=== PATIENT | male | born 1940 | race Caucasian/White ===

== ENCOUNTER 2021-05-20 17:50 | Inpatient (IN) | payer BC, OTHER ==
[2021-05-20 20:56] LABS: EOS % 1.4 % (0-4.5); HEMATOCRIT 41.5 % (35.4-49); HEMOGLOBIN 14.3 GM/dL (11.7-16.9); LYMPH % 19.6 % (8-40); MCH 28.5 pg (25.7-33.7); MCHC 34.4 g/dl (32.0-35.9); MEAN CELL VOLUME 82.7 fl (80-96); MEAN PLT VOLUME 7.6 fl (7.5-11.1); MONO % 6.4 % (3.8-10.2); NEUT % 71.6 % (42.8-82.8); PLATELET COUNT 80 10^3/uL (134-434); RBC 5.02 M/mm3 (4.00-5.60); RDW 14.7 % (11.9-15.9); WHITE BLOOD COUNT 4.9 K/mm3 (4.0-10.0)
[2021-05-20 21:03] LABS: EPI CELLS 2 /uL (0-25.1); HYALINE CASTS 1 /uL (0-3.1); PH,URINE 6.5 (5.0-8.0); URINE APPEARANCE CLEAR; URINE BACTERIA 10 /uL (0-1359); URINE BILIRUBIN NEGATIVE (NEGATIVE); URINE COLOR YELLOW; URINE GLUCOSE (UA) NEGATIVE (NEGATIVE); URINE KETONE NEGATIVE (NEGATIVE); URINE LEUK ESTERASE TRACE (NEGATIVE); URINE NITRITE NEGATIVE (NEGATIVE); URINE PROTEIN NEGATIVE (NEGATIVE); URINE RBC 37 /uL (0-23.9); URINE UROBILINOGEN 0.2 mg/dL (0.2-1.0); URINE WBC 7 /uL (0-25.8)
[2021-05-20 21:15] LABS: CHLORIDE 108 mmol/L (98-107); SODIUM 142 mmol/L (136-145)
[2021-05-20 21:17] LABS: CALCIUM 8.7 mg/dL (8.5-10.1)
[2021-05-20 21:18] LABS: ALBUMIN 3.4 g/dl (3.4-5.0); ANION GAP 7 MMOL/L (8-16); BLOOD UREA NITROGEN 16.9 mg/dL (7-18); CO2 28 mmol/L (21-32); GLUCOSE,RANDOM 87 mg/dL (74-106)
[2021-05-20 21:21] LABS: CREATININE 0.8 mg/dL (0.55-1.3); SGOT/AST 23 U/L (15-37); SGPT/ALT 20 U/L (13-61)
[2021-05-20 21:23] LABS: BILIRUBIN,TOTAL 0.4 mg/dL (0.2-1); TOT PROT 6.3 g/dl (6.4-8.2)
[2021-05-20 21:24] LABS: ALK PHOS 68 U/L (45-117)
[2021-05-20] MEDS ORDERED: HALOPERIDOL LACTATE 5 MG/ML IM ONE ×2 (23:05→23:06)
[2021-05-21] MEDS ORDERED: HALOPERIDOL LACTATE 5 MG/ML ONE (00:19)
[2021-05-21] MEDS ORDERED: clonazePAM 0.5 MG TABLET PO PRN (08:54)
[2021-05-21] MEDS: PANTOPRAZOLE 40 MG TABLET PO SCH (11:56)
[2021-05-21] MEDS: LOSARTAN POTASSIUM 50 MG TABLET PO SCH (11:56)
[2021-05-21] MEDS: ENOXAPARIN NA (PORCINE) 40 MG/0.4 ML DISP.SYRIN SQ SCH (11:58)
[2021-05-21] MEDS: SERTRALINE HCL 50 MG TABLET (FP) PO SCH (13:33)
[2021-05-21] MEDS: TIMOLOL 0.5% OPHTHALMIC SOL 5 ML BOTTLE OU SCH (14:23)
[2021-05-21] MEDS: MEMANTINE HCL 5 MG TABLET (UD) PO SCH ×2 (14:27→21:43)
[2021-05-21 15:34] VITALS: BMI 23.4
[2021-05-21 16:35] LABS: BASO % 0.5 % (0-2.0); EOS % 0.4 % (0-4.5); HEMATOCRIT 42.2 % (35.4-49); HEMOGLOBIN 14.7 GM/dL (11.7-16.9); LYMPH % 11.5 % (8-40); MCH 28.5 pg (25.7-33.7); MCHC 34.9 g/dl (32.0-35.9); MEAN CELL VOLUME 81.8 fl (80-96); MONO % 7.1 % (3.8-10.2); NEUT % 80.5 % (42.8-82.8); PLATELET COUNT 104 10^3/uL (134-434); RBC 5.16 M/mm3 (4.00-5.60); RDW 14.7 % (11.9-15.9); WHITE BLOOD COUNT 6.7 K/mm3 (4.0-10.0)
[2021-05-21 16:55] LABS: CALCIUM 8.4 mg/dL (8.5-10.1)
[2021-05-21 16:56] LABS: ALBUMIN 3.3 g/dl (3.4-5.0); BLOOD UREA NITROGEN 12.5 mg/dL (7-18)
[2021-05-21 16:57] LABS: MAGNESIUM 2.1 mg/dL (1.8-2.4)
[2021-05-21 16:59] LABS: CREATININE 0.9 mg/dL (0.55-1.3); PHOSPHOROUS 3.5 mg/dL (2.5-4.9)
[2021-05-21 17:00] LABS: BILIRUBIN,TOTAL 0.6 mg/dL (0.2-1); TOT PROT 6.1 g/dl (6.4-8.2)
[2021-05-21] MEDS ORDERED: clonazePAM 0.25 MG ODT TABLETS SL SCH (22:00)
[2021-05-22] MEDS ORDERED: PT OWN MED DRAWER 7, Y5N ONE ×2 (08:29→15:15)
[2021-05-22] MEDS ORDERED: clonazePAM 0.25 MG ODT TABLETS SL PRN (09:41)
[2021-05-22 09:48] LABS: BASO % 0.9 % (0-2.0); EOS % 1.4 % (0-4.5); HEMATOCRIT 47.4 % (35.4-49); HEMOGLOBIN 16.3 GM/dL (11.7-16.9); LYMPH % 16.5 % (8-40); MCH 28.6 pg (25.7-33.7); MCHC 34.4 g/dl (32.0-35.9); MEAN PLT VOLUME 8.1 fl (7.5-11.1); MONO % 7.3 % (3.8-10.2); NEUT % 73.9 % (42.8-82.8); PLATELET COUNT 118 10^3/uL (134-434); RBC 5.71 M/mm3 (4.00-5.60); RDW 14.8 % (11.9-15.9); WHITE BLOOD COUNT 6.6 K/mm3 (4.0-10.0)
[2021-05-22 10:05] LABS: CALCIUM 9.3 mg/dL (8.5-10.1)
[2021-05-22 10:06] LABS: BLOOD UREA NITROGEN 14.7 mg/dL (7-18)
[2021-05-22 10:09] LABS: CREATININE 0.8 mg/dL (0.55-1.3)
[2021-05-22] MEDS: SERTRALINE HCL 50 MG TABLET (FP) PO SCH (11:01)
[2021-05-22] MEDS: LOSARTAN POTASSIUM 50 MG TABLET PO SCH (11:01)
[2021-05-22] MEDS: PANTOPRAZOLE 40 MG TABLET PO SCH (11:01)
[2021-05-22] MEDS: MEMANTINE HCL 5 MG TABLET (UD) PO SCH ×2 (11:01→22:51)
[2021-05-22] MEDS: CYANOCOBALAMIN 1,000 MCG TABLET (FP) PO SCH (11:07)
[2021-05-22] MEDS: TIMOLOL 0.5% OPHTHALMIC SOL 5 ML BOTTLE OU SCH (11:14)
[2021-05-22] MEDS: ENOXAPARIN NA (PORCINE) 40 MG/0.4 ML DISP.SYRIN SQ SCH (11:14)
[2021-05-22] MEDS: ATORVASTATIN CA 20 MG TABLET (FP) PO SCH (23:48)
[2021-05-23] MEDS ORDERED: clonazePAM 0.5 MG TABLET PO PRN (09:36)
[2021-05-23] MEDS: MEMANTINE HCL 5 MG TABLET (UD) PO SCH ×2 (09:51→21:44)
[2021-05-23] MEDS: LOSARTAN POTASSIUM 50 MG TABLET PO SCH (09:51)
[2021-05-23] MEDS: SERTRALINE HCL 50 MG TABLET (FP) PO SCH (09:51)
[2021-05-23] MEDS: QUEtiapine FUMARATE 25 MG TABLET PO PRN ×2 (09:51→21:44)
[2021-05-23] MEDS: CYANOCOBALAMIN 1,000 MCG TABLET (FP) PO SCH (09:51)
[2021-05-23] MEDS: ENOXAPARIN NA (PORCINE) 40 MG/0.4 ML DISP.SYRIN SQ SCH (09:52)
[2021-05-23] MEDS: PANTOPRAZOLE 40 MG TABLET PO SCH (09:52)
[2021-05-23] MEDS: TIMOLOL 0.5% OPHTHALMIC SOL 5 ML BOTTLE OU SCH (09:53)
[2021-05-23] MEDS ORDERED: PT OWN MED DRAWER 7, Y5N ONE (16:29)
[2021-05-23] MEDS: ATORVASTATIN CA 20 MG TABLET (FP) PO SCH (21:44)
[2021-05-24] MEDS: QUEtiapine FUMARATE 25 MG TABLET PO PRN (08:20)
[2021-05-24] MEDS ORDERED: LORazepam 2 MG/ML SDV VIAL IM ONE (09:30)
[2021-05-24] MEDS: ENOXAPARIN NA (PORCINE) 40 MG/0.4 ML DISP.SYRIN SQ SCH (09:36)
[2021-05-24] MEDS: PANTOPRAZOLE 40 MG TABLET PO SCH (09:36)
[2021-05-24] MEDS: LOSARTAN POTASSIUM 50 MG TABLET PO SCH (09:36)
[2021-05-24] MEDS: MEMANTINE HCL 5 MG TABLET (UD) PO SCH ×2 (09:37→23:27)
[2021-05-24] MEDS: CYANOCOBALAMIN 1,000 MCG TABLET (FP) PO SCH (09:37)
[2021-05-24] MEDS ORDERED: LORazepam 2 MG/ML SDV VIAL IM PRN (09:56)
[2021-05-24] MEDS: TIMOLOL 0.5% OPHTHALMIC SOL 5 ML BOTTLE OU SCH (14:08)
[2021-05-24] MEDS: SERTRALINE HCL 50 MG TABLET (FP) PO SCH (14:08)
[2021-05-24] MEDS ORDERED: PT OWN MED DRAWER 7, Y5N ONE (15:34)
[2021-05-24] MEDS: ATORVASTATIN CA 20 MG TABLET (FP) PO SCH (23:27)
[2021-05-25] MEDS: QUEtiapine FUMARATE 25 MG TABLET PO PRN (08:13)
[2021-05-25] MEDS: LOSARTAN POTASSIUM 50 MG TABLET PO SCH (11:59)
[2021-05-25] MEDS: SERTRALINE HCL 50 MG TABLET (FP) PO SCH (11:59)
[2021-05-25] MEDS: MEMANTINE HCL 5 MG TABLET (UD) PO SCH (11:59)
[2021-05-25] MEDS: PANTOPRAZOLE 40 MG TABLET PO SCH (11:59)
[2021-05-25] MEDS: CYANOCOBALAMIN 1,000 MCG TABLET (FP) PO SCH (11:59)
[2021-05-25] MEDS: ENOXAPARIN NA (PORCINE) 40 MG/0.4 ML DISP.SYRIN SQ SCH (13:31)
[2021-05-25] MEDS: TIMOLOL 0.5% OPHTHALMIC SOL 5 ML BOTTLE OU SCH (13:33)
[2021-05-25] MEDS ORDERED: PT OWN MED DRAWER 7, Y5N ONE (16:22)
[2021-05-25 17:27] VITALS: BP 120/70; PULSE 53; TEMP 97
== END 2021-05-25 16:51 | DRG 884 ==
LOC: JER 17:50 → JERBED 23:27 → OBSVTOIN 05-21 01:16 → J5S 05-21 10:13
PROVIDERS: ADMIT Internal Medicine; ATTEND Internal Medicine
DX: F03.91 Unspecified dementia, unspecified severity, with behavioral disturbance (principal); G91.2 (Idiopathic) normal pressure hydrocephalus; D64.9 Anemia, unspecified; Z95.2 Presence of prosthetic heart valve; Z95.1 Presence of aortocoronary bypass graft; R82.71 Bacteriuria; D69.59 Other secondary thrombocytopenia
CPT/HCPCS: 36415; 70450-TC; 80048; 80053; 80061; 81003; 82550; 82607; 83735; 84100; 84443; 84484; 85025; 86780; 87086; 87186; 93005; 93010; 97116-GP; 97162-GP; 99285-25; C9803; G0378; U0003; U0005